=== PATIENT | male | born 1960 | race Caucasian/White ===

== ENCOUNTER 2018-07-08 09:58 | Observation (INO) ==
[2018-07-08 10:17] VITALS: TEMP 97.5; O2SAT 100
[2018-07-08] MEDS ORDERED: Aspirin 325 MG Tablet PO ONE (10:19)
--- NOTE | 2018-07-08 10:26 | ED ---
HPI General Chief complaint: Shortness of Breath/Dyspnea Stated complaint: Evac/Respiratory Time Seen by Provider: 07/08/18 10:07 History of Present Illness HPI narrative: Patient presents to the emergency department with chest pain, shortness of breath. 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 Patient has a history of AR one half years ago states he has been noncompliant with his medications. Chest pain described as midsternal, unsure of aggravating factors, no alleviating factors, no chest pain currently, it was constant, nonradiating, was present for a day until midday yesterday when it resolved spontaneously and came back at the [facility] today Was given 125 mg of Solu- Medrol by EMS and Accu-Check was 305. EMS attempted to give him a breathing treatment but he could not tolerate the mask. He reports chronic shortness of breath. He denies fever, vomiting, but reports chills, lower extremity edema bilaterally secondary to "walking a lot," and nausea. Patient states he used cocaine and heroin 4 days ago. Related Data Home Medications Medication Instructions Recorded Confirmed albuterol sulfate 2 puff INHALATION Q6H PRN 07/08/18 07/08/18 aspirin 81 mg PO DAILY 07/08/18 07/08/18 clonidine HCl 0.1 mg PO TID PRN 07/08/18 07/08/18 doxycycline hyclate 100 mg PO BID 07/08/18 07/08/18 isosorbide mononitrate 30 mg PO DAILY 07/08/18 07/08/18 lisinopril 2.5 mg PO DAILY 07/08/18 07/08/18 loperamide 2 mg PO QID PRN 07/08/18 07/08/18 melatonin 3 mg PO HS PRN 07/08/18 07/08/18 metformin 1,000 mg PO BID 07/08/18 07/08/18 mirtazapine 15 mg PO HS 07/08/18 07/08/18 omeprazole 20 mg PO DAILY 07/08/18 07/08/18 prazosin 4 mg PO BID 07/08/18 07/08/18 terbinafine HCl 1 applic TOPICAL BID 07/08/18 07/08/18 Allergies Allergy/AdvReac Type Severity Reaction Status Date / Time adhesive Allergy Severe Hives Verified 07/08/18 10:04 Review of Systems ROS: all other systems reviewed are negative [facility] Medical History Medical History CAD (coronary artery disease) (Acute) COPD (chronic obstructive pulmonary disease) (Acute) Chronic back pain (Acute) Depression (Acute) Diabetes mellitus, type 2 (Acute) Fatty liver (Acute) GERD (gastroesophageal reflux disease) (Acute) Heart attack (Acute) Homeless (Acute) Hyperlipemia (Acute) Hypertension (Acute) Opioid dependence (Acute) PTSD (post-traumatic stress disorder) (Acute) Pilonidal cyst (Acute) Polysubstance abuse (Acute) Smoker (Acute) Surgical History Surgical History Status post placement of VNS (vagus nerve stimulation) device (Acute) Social History Social History Substance History: Active Abuse Second Hand Smoke Exposure: Yes Smoking Status: Current every day smoker Tobacco Type: Cigarettes How Often Do You Have a Drink Containing Alcohol: Never Recent Travel in [facility] within the Last 8 Weeks: No Recent Out of Country Travel within the Last 8 Weeks: No Exam Narrative Exam Narrative: GENERAL: No acute distress. SKIN: Focused skin assessment warm/dry. + bug bites face/arms,back, + fungal infection in groin HEAD: Atraumatic. Normocephalic. EYES: Pupils equal and round. No scleral icterus. No injection or drainage. ENT: No nasal bleeding or discharge. Mucous membranes pink and moist. NECK: Trachea midline. No JVD. CARDIOVASCULAR: Regular rate and rhythm. No murmur appreciated. RESPIRATORY: No accessory muscle use. Clear to auscultation. Breath sounds equal bilaterally. GASTROINTESTINAL: Abdomen soft, slightly diffuselytender, nondistended. Pilonidal cyst. MUSCULOSKELETAL: No obvious deformities. No clubbing. No cyanosis. No edema. NEUROLOGICAL: Awake and alert. No obvious cranial nerve deficits. Motor grossly within normal limits. Normal speech. PSYCHIATRIC: Appropriate mood and affect; insight and judgment normal. Course Initial Documented Vital Signs Temperature 97.5 F L 07/08/18 10:04 Pulse Rate 54 L 07/08/18 10:04 Respiratory Rate 22 07/08/18 10:04 Blood Pressure 133/78 07/08/18 10:04 Pulse Oximetry 100 07/08/18 10:04 Last Documented Vital Signs Temperature 97.5 F L 07/08/18 10:04 Pulse Rate 60 07/08/18 11:16 Respiratory Rate 20 07/08/18 11:16 Blood Pressure 127/62 07/08/18 11:16 Pulse Oximetry 100 07/08/18 11:16 Medical Decision Making MDM Narrative Medical decision making narrative: Patient presents to the emergency department chest pain shortness of breath. Patient placed on the custom seamstress, continuous pulse ox, and IV access obtained. EKG, chest x-ray, labs, aspirin 325 mg p.o. ordered. Patient has no chest pain currently. Duoneb ordered in ER. Labs: Glucose, BNP increased; CXR-no acute process. UDS + cocaine and heroin. Will admit to chest pain center fro observation. 1250: Patient resting in stretcher asking for food and wanting to know "can they do leoncio stress test tomorrow" after I told him that he's NPO to get a stress test today. Differential Diagnosis Differential Diagnosis: ACS, CHF, pneumonia, costochondritis, PE Lab Data Result diagrams: 07/08/18 10:35 07/08/18 10:35 Lab Results 07/08/18 07/08/18 07/08/18 Range/Units 10:16 10:35 10:35 WBC 8.6 (4.0-11.0) th/mm3 RBC 4.69 (4.50-5.90) mil/mm3 Hgb 14.1 (13.0-17.0) gm/dL Hct 40.8 (39.0-51.0) % MCV 87.1 (80.0-100.0) fL MCH 30.0 (27.0-34.0) pg MCHC 34.5 (32.0-36.0) % RDW 15.3 (11.6-17.2) % Plt Count 193 (150-450) th/mm3 MPV 8.4 (7.0-11.0) fL Neut % (Auto) 75.1 H (16.0-70.0) % Lymph % (Auto) 15.9 (9.0-44.0) % [place] % (Auto) 8.1 H (0.0-8.0) % Eos % (Auto) 0.4 (0.0-4.0) % Baso % (Auto) 0.5 (0.0-2.0) % Neut # (Auto) 6.4 (1.8-7.7) th/mm3 Lymph # (Auto) 1.4 (1.0-4.8) th/mm3 [place] # (Auto) 0.7 (0.0-0.9) th/mm3 Eos # (Auto) 0.0 (0.0-0.4) th/mm3 Baso # (Auto) 0.0 (0.0-0.2) th/mm3 WBC Differential . Differential Comment Auto diff final PT (9.8-11.6) sec INR Ratio APTT (24.3-30.1) sec Sodium 139 (136-145) meq/L Potassium 3.7 (3.5-5.1) meq/L Chloride 107 (98-107) meq/L Carbon Dioxide 24.5 (21.0-32.0) meq/L Anion Gap 8 (5-15) meq/L BUN 13 (7-18) mg/dL Creatinine 0.91 (0.60-1.30) mg/dL Estimated GFR 86 L (>89) mL/min POC Glucose 212 H (68-110) mg/dl Random Glucose 204 H (74-106) mg/dL Calcium 8.6 (8.5-10.1) mg/dL Magnesium (1.5-2.5) mg/dL Total Bilirubin 0.5 (0.2-1.0) mg/dL AST 35 (15-37) U/L ALT 57 (12-78) U/L Alkaline Phosphatase 64 (45-117) U/L Total Creatine Kinase (39-308) U/L Troponin I Less than 0.02 L (0.02-0.05) ng/mL B-Natriuretic Peptide (0-100) pg/mL Total Protein 6.9 (6.4-8.2) g/dL Albumin 3.2 L (3.4-5.0) g/dL Urine Color (Yellw/Straw) Urine Clarity (Clear) Urine pH (5.0-8.5) Ur Specific [place] (1.002-1.035) Urine Protein (Neg-Trace) mg/dL Urine Glucose (UA) (Negative) mg/dL Urine Ketones (Negative) mg/dL Urine Occult Blood (Negative) Urine Nitrate (Negative) Urine Bilirubin (Negative) Urine Urobilinogen (Less than 2) mg/dL Ur Leukocyte Esterase (Negative) Urine RBC (0-3) /hpf Urine WBC (0-5) /hpf Ur Squamous Epith Cells (0-5) /hpf Urine Mucus (Occasional) /lpf Micro UA Comment Urine Culture Comments Urine Opiates Screen (Neg) Ur Barbiturates Screen (Neg) Ur Amphetamines Screen (Neg) U Benzodiazepines Scrn (Neg) Urine Cocaine Screen (Neg) U Cannabinoids Screen (Neg) 07/08/18 07/08/18 07/08/18 Range/Units 10:35 10:35 10:35 WBC (4.0-11.0) th/mm3 RBC (4.50-5.90) mil/mm3 Hgb (13.0-17.0) gm/dL Hct (39.0-51.0) % MCV (80.0-100.0) fL MCH (27.0-34.0) pg MCHC (32.0-36.0) % RDW (11.6-17.2) % Plt Count (150-450) th/mm3 MPV (7.0-11.0) fL Neut % (Auto) (16.0-70.0) % Lymph % (Auto) (9.0-44.0) % [place] % (Auto) (0.0-8.0) % Eos % (Auto) (0.0-4.0) % Baso % (Auto) (0.0-2.0) % Neut # (Auto) (1.8-7.7) th/mm3 Lymph # (Auto) (1.0-4.8) th/mm3 [place] # (Auto) (0.0-0.9) th/mm3 Eos # (Auto) (0.0-0.4) th/mm3 Baso # (Auto) (0.0-0.2) th/mm3 WBC Differential Differential Comment PT 11.1 (9.8-11.6) sec INR 1.1 Ratio APTT 25.9 (24.3-30.1) sec Sodium (136-145) meq/L Potassium (3.5-5.1) meq/L Chloride (98-107) meq/L Carbon Dioxide (21.0-32.0) meq/L Anion Gap (5-15) meq/L BUN (7-18) mg/dL Creatinine (0.60-1.30) mg/dL Estimated GFR (>89) mL/min POC Glucose (68-110) mg/dl Random Glucose (74-106) mg/dL Calcium (8.5-10.1) mg/dL Magnesium 2.1 (1.5-2.5) mg/dL Total Bilirubin (0.2-1.0) mg/dL AST (15-37) U/L ALT (12-78) U/L Alkaline Phosphatase (45-117) U/L Total Creatine Kinase 42 (39-308) U/L Troponin I (0.02-0.05) ng/mL B-Natriuretic Peptide 294 H (0-100) pg/mL Total Protein (6.4-8.2) g/dL Albumin (3.4-5.0) g/dL Urine Color (Yellw/Straw) Urine Clarity (Clear) Urine pH (5.0-8.5) Ur Specific [place] (1.002-1.035) Urine Protein (Neg-Trace) mg/dL Urine Glucose (UA) (Negative) mg/dL Urine Ketones (Negative) mg/dL Urine Occult Blood (Negative) Urine Nitrate (Negative) Urine Bilirubin (Negative) Urine Urobilinogen (Less than 2) mg/dL Ur Leukocyte Esterase (Negative) Urine RBC (0-3) /hpf Urine WBC (0-5) /hpf Ur Squamous Epith Cells (0-5) /hpf Urine Mucus (Occasional) /lpf Micro UA Comment Urine Culture Comments Urine Opiates Screen (Neg) Ur Barbiturates Screen (Neg) Ur Amphetamines Screen (Neg) U Benzodiazepines Scrn (Neg) Urine Cocaine Screen (Neg) U Cannabinoids Screen (Neg) 07/08/18 07/08/18 Range/Units 10:36 10:36 WBC (4.0-11.0) th/mm3 RBC (4.50-5.90) mil/mm3 Hgb (13.0-17.0) gm/dL Hct (39.0-51.0) % MCV (80.0-100.0) fL MCH (27.0-34.0) pg MCHC (32.0-36.0) % RDW (11.6-17.2) % Plt Count (150-450) th/mm3 MPV (7.0-11.0) fL Neut % (Auto) (16.0-70.0) % Lymph % (Auto) (9.0-44.0) % [place] % (Auto) (0.0-8.0) % Eos % (Auto) (0.0-4.0) % Baso % (Auto) (0.0-2.0) % Neut # (Auto) (1.8-7.7) th/mm3 Lymph # (Auto) (1.0-4.8) th/mm3 [place] # (Auto) (0.0-0.9) th/mm3 Eos # (Auto) (0.0-0.4) th/mm3 Baso # (Auto) (0.0-0.2) th/mm3 WBC Differential Differential Comment PT (9.8-11.6) sec INR Ratio APTT (24.3-30.1) sec Sodium (136-145) meq/L Potassium (3.5-5.1) meq/L Chloride (98-107) meq/L Carbon Dioxide (21.0-32.0) meq/L Anion Gap (5-15) meq/L BUN (7-18) mg/dL Creatinine (0.60-1.30) mg/dL Estimated GFR (>89) mL/min POC Glucose (68-110) mg/dl Random Glucose (74-106) mg/dL Calcium (8.5-10.1) mg/dL Magnesium (1.5-2.5) mg/dL Total Bilirubin (0.2-1.0) mg/dL AST (15-37) U/L ALT (12-78) U/L Alkaline Phosphatase (45-117) U/L Total Creatine Kinase (39-308) U/L Troponin I (0.02-0.05) ng/mL B-Natriuretic Peptide (0-100) pg/mL Total Protein (6.4-8.2) g/dL Albumin (3.4-5.0) g/dL Urine Color [place] (Yellw/Straw) Urine Clarity Clear (Clear) Urine pH 6.0 (5.0-8.5) Ur Specific [place] 1.025 (1.002-1.035) Urine Protein Negative (Neg-Trace) mg/dL Urine Glucose (UA) 50 (Negative) mg/dL Urine Ketones Trace (Negative) mg/dL Urine Occult Blood Negative (Negative) Urine Nitrate Negative (Negative) Urine Bilirubin Negative (Negative) Urine Urobilinogen 4 or greater (Less than 2) mg/dL Ur Leukocyte Esterase Negative (Negative) Urine RBC 1 (0-3) /hpf Urine WBC Less than 1 (0-5) /hpf Ur Squamous Epith Cells <1 (0-5) /hpf Urine Mucus Many H (Occasional) /lpf Micro UA Comment Culture not ind Urine Culture Comments Culture not ind Urine Opiates Screen Pos H (Neg) Ur Barbiturates Screen Neg (Neg) Ur Amphetamines Screen Neg (Neg) U Benzodiazepines Scrn Neg (Neg) Urine Cocaine Screen Pos H (Neg) U Cannabinoids Screen Neg (Neg) Imaging Data Radiologist's impression: Chest X-Ray 07/08/18 10:19 CONCLUSION: Negative examination. ECG Data Attestation: I personally reviewed and interpreted this ECG as follows: (Sinus bradycardia, rate 52, normal axis, normal intervals, slight ST elevation in V1 and V2) Discharge Plan Discharge Disposition Patient Disposition: 30 Still Patient Discharge Condition Condition: Stable Discharge Details Diagnosis: Chest pain Physicians Team ED Provider: Alexus Bryant Primary Care Provider: [facility] Attending Provider: Hector Botello Status ED Status: Admitted Observation Patient
--- NOTE | 2018-07-08 10:49 | XR ---
EXAM DATE: 07/08/2018 10:39 AM EDT AGE/SEX: 57 years / Male INDICATIONS: Chest pain. Short of breath. CLINICAL DATA: This is the patient's initial encounter. Patient reports that signs and symptoms have been present for 2 days and indicates a pain score of 0/10. MEDICAL/SURGICAL HISTORY: Chronic obstructive pulmonary disease. None. [place] [facility] [place]. . FINDINGS: A single AP view of the chest demonstrates the lungs to be symmetrically aerated without evidence of mass, infiltrate or effusion. The cardiomediastinal contours are unremarkable. Osseous structures a re intact. Graduated catheters overlie the spine. CONCLUSION: Negative examination. Electronically signed by: Fei Bartlett MD 07/08/2018 10:47 AM EDT
[2018-07-08 10:55] LABS: Baso % (Auto) 0.5 % (0.0-2.0); Eos % (Auto) 0.4 % (0.0-4.0); Hematocrit 40.8 % (39.0-51.0); Hemoglobin 14.1 gm/dL (13.0-17.0); Lymph # (Auto) 1.4 th/mm3 (1.0-4.8); Lymph % (Auto) 15.9 % (9.0-44.0); Mean Corpuscular HGB Conc 34.5 % (32.0-36.0); Mean Corpuscular Volume 87.1 fL (80.0-100.0); Mean Platelet Volume 8.4 fL (7.0-11.0); Mono # (Auto) 0.7 th/mm3 (0.0-0.9); Mono % (Auto) 8.1 % (0.0-8.0); Neut # (Auto) 6.4 th/mm3 (1.8-7.7); Neut % (Auto) 75.1 % (16.0-70.0); Platelet Count 193 th/mm3 (150-450); Red Blood Count 4.69 mil/mm3 (4.50-5.90); Red Cell Distribution Width 15.3 % (11.6-17.2); White Blood Count 8.6 th/mm3 (4.0-11.0)
[2018-07-08 11:09] LABS: Activated Partial Thrombo Time 25.9 sec (24.3-30.1); INR 1.1 Ratio; Prothrombin Time 11.1 sec (9.8-11.6)
[2018-07-08 11:10] LABS: Bilirubin,Urine Negative (Negative); Clarity,Urine Clear (Clear); Color,Urine Amber (Yellw/Straw); Glucose,Urine (UA) 50 mg/dL (Negative); Leukocyte Esterase,Urine Negative (Negative); Mucus,Urine Many /lpf (Occasional); Nitrite,Urine Negative (Negative); Specific Gravity,Urine 1.025 (1.002-1.035); Squamous Epithelial Cell,Urine <1 /hpf (0-5); Urobilinogen,Urine 4 or Greater mg/dL (Less than 2)
[2018-07-08 11:12] LABS: Alanine Aminotransferase 57 U/L (12-78); Albumin 3.2 g/dL (3.4-5.0); Anion Gap 8 meq/L (5-15); Aspartate Aminotransferase 35 U/L (15-37); Blood Urea Nitrogen 13 mg/dL (7-18); Calcium 8.6 mg/dL (8.5-10.1); Carbon Dioxide 24.5 meq/L (21.0-32.0); Chloride 107 meq/L (98-107); Glomerular Filtration Rate 86 mL/min (>89); Glucose,Random 204 mg/dL (74-106); Magnesium 2.1 mg/dL (1.5-2.5); Potassium 3.7 meq/L (3.5-5.1); Sodium 139 meq/L (136-145)
[2018-07-08 11:15] LABS: Alkaline Phosphatase 64 U/L (45-117); Total Protein 6.9 g/dL (6.4-8.2)
[2018-07-08 11:22] VITALS: BP 127/62
[2018-07-08 12:30] LABS: Amphetamine Screen,Urine Neg (Neg); Barbiturate Screen,Urine Neg (Neg); Cannabinoid Screen,Urine Neg (Neg); Cocaine Screen,Urine Pos (Neg)
[2018-07-08 12:33] LABS: Opiate Screen,Urine Pos (Neg)
[2018-07-08 13:25] VITALS: PULSE 59; RESP 17
--- NOTE | 2018-07-08 15:19 | P.HPCA ---
History of Present Illness Primary Care Physician: [facility] Chief Complaint: Chest pain History of Present Illness: This is a 57-year-old male the presents to ED with complaint of chest discomfort has been constantly present for 2 days. Found nothing to worsen or improve it. He also states that he feels dizzy. Patient states that he has never had a cardiac workup in the past. States he is usually left AGAINST MEDICAL ADVICE prior to any other testing being completed. Upon reviewing records he left AGAINST MEDICAL ADVICE February 03 and February 04, 2017. Denies being nauseous or diaphoretic with the symptoms but at times short of breath. Patient states he continues smoke service. He also smokes crack cocaine and also abuses IV drugs which states he injects heroin. States he uses much as he can afford. States last time he injected heroin or smoke crack cocaine was 4 days ago. Is not really sure of his family cardiac history. Patient admits to tobacco abuse as well as polysubstance abuse. - Diagnosis (1) Chest pain (2) Hypertension (3) Hyperlipidemia (4) Diabetes (5) Tobacco abuse (6) Polysubstance abuse (7) Noncompliance Review of Systems General: Patient denies fevers, chills, and recent travel. HEENT: Patient denies headache, sore throat, difficulty swallowing. Cardiovascular: Has the chest discomfort as mentioned above. Denies sensation of heart beating rapidly or irregularly. No syncope. Denies diaphoresis. Respiratory: Occasional shortness of breath. Denies inspirational chest discomfort. Denies coughing wheezing or hemoptysis. GI: Patient denies nausea, vomiting, diarrhea, abdominal pain, bloody stools. Musculoskeletal: Patient denies joint pain or edema. Denies calf pain or edema. Neurovascular: Patient denies numbness, tingling, weakness in extremities. Denies headache. Endocrine: Denies polyuria and polydipsia. Hematologic: Denies easy bruising. Skin: Denies rash or itching. PMFSH - History History Provided By: Patient - Medical History Medical History: Medical History (Last Updated 07/08/18 @ 11:20 by Celia Vidales) CAD (coronary artery disease) COPD (chronic obstructive pulmonary disease) Chronic back pain Depression Diabetes mellitus, type 2 Fatty liver GERD (gastroesophageal reflux disease) Heart attack Homeless Hyperlipemia Hypertension Opioid dependence PTSD (post-traumatic stress disorder) Pilonidal cyst Polysubstance abuse Smoker - Surgical History Surgical History: Surgical History (Last Updated 07/08/18 @ 10:18 by Celia Vidales) Status post placement of VNS (vagus nerve stimulation) device - Tobacco History Second Hand Smoke Exposure: Yes Tobacco Use In Past 30 Days: Yes Smoking Status: Current every day smoker Tobacco Type: Cigarettes - Alcohol History How Often Do You Have a Drink Containing Alcohol: Never - Substance Use History Substance History: Active Abuse - Substance Use Type Crack/Cocaine Status: Active Route Used: Inhalation Heroin Status: Active Route Used: Intravenously - Travel History Recent Travel in the [place] Within the Last 8 Weeks: No Recent Travel Out of the Country Within the Last 8 Weeks: No - Immunization History Tetanus Immunization: <5 Years Hx Influenza Vaccine This Season: No Medications and Allergies Allergies Allergy/AdvReac Type Severity Reaction Status Date / Time adhesive Allergy Severe Hives Verified 07/08/18 10:04 Home Medications Medication Instructions Recorded Confirmed Type albuterol sulfate 2 puff INHALATION Q6H PRN 07/08/18 07/08/18 History aspirin 81 mg PO DAILY 07/08/18 07/08/18 History clonidine HCl 0.1 mg PO TID PRN 07/08/18 07/08/18 History doxycycline hyclate 100 mg PO BID 07/08/18 07/08/18 History isosorbide mononitrate 30 mg PO DAILY 07/08/18 07/08/18 History lisinopril 2.5 mg PO DAILY 07/08/18 07/08/18 History loperamide 2 mg PO QID PRN 07/08/18 07/08/18 History melatonin 3 mg PO HS PRN 07/08/18 07/08/18 History metformin 1,000 mg PO BID 07/08/18 07/08/18 History mirtazapine 15 mg PO HS 07/08/18 07/08/18 History omeprazole 20 mg PO DAILY 07/08/18 07/08/18 History prazosin 4 mg PO BID 07/08/18 07/08/18 History terbinafine HCl 1 applic TOPICAL BID 07/08/18 07/08/18 History Exam Vital signs: Vital Signs 07/08/18 10:04 07/08/18 11:16 07/08/18 13:23 Temperature 97.5 F L Pulse Rate 54 L 60 59 L Respiratory Rate 22 20 17 Blood Pressure 133/78 127/62 Pulse Oximetry 100 100 Intake & Output 07/07/18 07/08/18 07/08/18 18:59 06:59 18:59 Weight 77.111 kg Narrative: GENERAL: This is a well-nourished, well-developed patient, in no apparent distress. Patient speaks in clear complete sentences. Patient is pleasant. HEENT: Head is atraumatic and normocephalic. Neck is supple without lymphadenopathy and trachea is midline. No JVD or carotid bruits. CARDIOVASCULAR: Regular rate and rhythm without murmurs, gallops, or rubs. RESPIRATORY: Clear to auscultation. Breath sounds equal bilaterally. No wheezes , rales, or rhonchi. Chest wall is nontender. No use of accessory muscles. GASTROINTESTINAL: Abdomen is nontender, nondistended. Abdomen soft. No obvious pulsatile mass or bruit. No CVA tenderness. Strong femoral pulses bilaterally. Normal bowel sounds in all quadrants. MUSCULOSKELETAL: Patient is moving upper and lower extremities freely. No calf tenderness or edema, no Homans sign. Strong pulses in upper and lower extremities. NEUROLOGICAL: Patient is alert and oriented. Cranial nerves 2-12 are grossly intact. No focal deficits and speech is clear. SKIN: No rash and turgor is normal. There are track bryson on both arms without signs of infection. Results 07/08/18 10:35 07/08/18 10:35 Cardiac Enzymes 07/08/18 07/08/18 Range/Units 10:35 10:35 AST 35 (15-37) U/L Troponin I Less than 0.02 L (0.02-0.05) ng/mL B-Natriuretic Peptide 294 H (0-100) pg/mL Coagulation 07/08/18 07/08/18 Range/Units 10:35 10:35 PT 11.1 (9.8-11.6) sec APTT 25.9 (24.3-30.1) sec B-Natriuretic Peptide 294 H (0-100) pg/mL CBC 07/08/18 Range/Units 10:35 WBC 8.6 (4.0-11.0) th/mm3 RBC 4.69 (4.50-5.90) mil/mm3 Hgb 14.1 (13.0-17.0) gm/dL Hct 40.8 (39.0-51.0) % Plt Count 193 (150-450) th/mm3 Neut # (Auto) 6.4 (1.8-7.7) th/mm3 Lymph # (Auto) 1.4 (1.0-4.8) th/mm3 [place] # (Auto) 0.7 (0.0-0.9) th/mm3 Eos # (Auto) 0.0 (0.0-0.4) th/mm3 Baso # (Auto) 0.0 (0.0-0.2) th/mm3 Comprehensive Metabolic Panel 07/08/18 Range/Units 10:35 Sodium 139 (136-145) meq/L Potassium 3.7 (3.5-5.1) meq/L Chloride 107 (98-107) meq/L Carbon Dioxide 24.5 (21.0-32.0) meq/L BUN 13 (7-18) mg/dL Creatinine 0.91 (0.60-1.30) mg/dL Calcium 8.6 (8.5-10.1) mg/dL AST 35 (15-37) U/L ALT 57 (12-78) U/L Alkaline Phosphatase 64 (45-117) U/L Total Protein 6.9 (6.4-8.2) g/dL Albumin 3.2 L (3.4-5.0) g/dL Intake and Output 07/07/18 07/08/18 07/08/18 22:59 06:59 14:59 Other: Weight 77.111 kg Patient Weight 07/09/18 06:59 Weight 77.111 kg EKG interpretations - EKG EKG shows: bradycardia (Initial EKG is sinus bradycardia rate [address] segment depressions or elevations.) Caprini VTE Risk Assessment Caprini VTE Risk Assessment: No/Low Risk (score <= 1) Caprini Risk Assessment Model: Point Value = 1 Point Value = 2 Point Value = 3 Point Value = 5 Age 41-60 Minor surgery BMI > 25 kg/m2 Swollen legs Varicose veins or History of unexplained or recurrent spontaneous Oral contraceptives or hormone replacement Sepsis (< 1 month) Serious lung disease, including pneumonia (< 1 month) Abnormal pulmonary function Acute myocardial infarction Congestive heart failure (< 1 month) History of inflammatory bowel disease Medical patient at bed rest Age 61-74 Arthroscopic surgery Major open surgery (> 45 min) Laparoscopic surgery (> 45 min) Malignancy Confined to bed (> 72 hours) Immobilizing plaster cast Central venous access Age >= 75 History of VTE Family history of VTE Factor V Leiden Prothrombin [id number] Lupus anticoagulant Anticardiolipin antibodies Elevated serum homocysteine Heparin-induced thrombocytopenia Other congenital or acquired thrombophilia Stroke (< 1 month) Elective arthroplasty Hip, pelvis, or leg fracture Acute spinal cord injury (< 1 month) Prophylaxis Regimen: Total Risk Factor Score Risk Level Prophylaxis Regimen 0-1 Low Early ambulation 2 Moderate Order ONE of the following: *Sequential Compression Device (SCD) *Heparin 5000 units SQ BID 3-4 Higher Order ONE of the following medications: *Heparin 5000 units SQ TID *Enoxaparin/Lovenox 40 mg SQ daily (WT < 150 kg, CrCl > 30 mL/min) *Enoxaparin/Lovenox 30 mg SQ daily (WT < 150 kg, CrCl > 10-29 mL/min) *Enoxaparin/Lovenox 30 mg SQ BID (WT < 150 kg, CrCl > 30 mL/min) AND/OR *Sequential Compression Device (SCD) 5 or more Highest Order ONE of the following medications: *Heparin 5000 units SQ TID (Preferred with Epidurals) *Enoxaparin/Lovenox 40 mg SQ daily (WT < 150 kg, CrCl > 30 mL/min) *Enoxaparin/Lovenox 30 mg SQ daily (WT < 150 kg, CrCl > 10-29 mL/min) *Enoxaparin/Lovenox 30 mg SQ BID (WT < 150 kg, CrCl > 30 mL/min) AND *Sequential Compression Device (SCD) Assessment and Plan - Assessment (1) Chest pain Code(s): R07.9 - Chest pain, unspecified Status: Acute (2) Hypertension Code(s): I10 - Essential (primary) hypertension Status: Acute (3) Hyperlipidemia Code(s): E78.5 - Hyperlipidemia, unspecified Status: Acute (4) Diabetes Code(s): E11.9 - Type 2 diabetes mellitus without complications Status: Acute (5) Tobacco abuse Code(s): Z72.0 - Tobacco use Status: Acute (6) Polysubstance abuse Code(s): F19.10 - Other psychoactive substance abuse, uncomplicated Status: Acute (7) Noncompliance Code(s): Z91.19 - Patient's noncompliance with other medical treatment and regimen Status: Acute - Plan * Chest pain: Patient was to stay in chest pain center for further evaluation and to be seen by fretted string instrument repairer Dr. Hector Botello. His first troponin was normal. The patient's nurse came over to the chest pain center informed myself that the patient had pulled his IV out and eloped from the emergency department without notifying staff. He left before further testing were to be completed. (1) Chest pain Qualifiers: Chest pain type: unspecified Qualified Code(s): R07.9 - Chest pain, unspecified
--- NOTE | 2018-07-09 09:22 | ECG ---
Date Performed: 07/08/2018 Time Performed: 10:09:24 PTAGE: 57 years EKG: SINUS BRADYCARDIA SEPTAL MYOCARDIAL INFARCTION ABNORMAL ECG INTERPRETATION BASED ON A DEFAU LT AGE OF 41 YEARS PREVIOUS TRACING : 02/03/2017 15.40 DOCTOR: Oswaldo Tinoco Interpretating Date/Time 07/09/2018 09:22:14
== END 2018-07-08 14:36 | disposition left against medical advice (07) ==
LOC: NEPE 09:58 → NEDA 09:58
PROVIDERS: ADMIT Internal Medicine Cardiovascular Disease; ATTEND Internal Medicine Cardiovascular Disease